=== PATIENT | male | born 1975 | race Caucasian/White ===

== ENCOUNTER 2016-10-09 01:06 | Emergency (ER) | payer MEDICARE, MEDICAID ==
[2016-10-09 01:12] VITALS: BP 149/103
--- NOTE | 2016-10-09 01:49 | ED ---
Becka Shaw Erika, scribed for Alphonso Verma MD on 10/09/16 at 0149 . 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 Pt denies any other complaints. - History of Current Complaint Chief Complaint: EDGeneral Stated Complaint: LEGAL BLOOD DRAW Time Seen by Provider: 10/09/16 01:44 PMH/Surg Hx/FS Hx/Imm Hx Cardiovascular History: Reports: Hx Coronary Artery Disease, Hx Valvular Heart Disease - Surgical History Surgery Procedure, Year, and Place: aortic vavle transplant 2011- metal valve. coronary disease Infectious Disease History: No Infectious Disease History: Denies: Traveled Outside the [place] in Last 30 Days - Family History Family History: stomach cancer - Social History Alcohol Use: None Hx Substance Use: No Substance Use Type: Reports: None Smoking Status (MU): Unknown if Ever Smoked Review of Systems Negative: Abdominal Pain Negative: Arthralgia, Myalgia All Other Systems Reviewed And Are Negative: Yes Physical Exam Triage Information Reviewed: Yes Vital Signs On Initial Exam: Initial Vitals Temp Pulse Resp BP Pulse Ox 98.7 F 75 16 149/103 98 10/09/16 01:08 10/09/16 01:08 10/09/16 01:08 10/09/16 01:08 10/09/16 01:08 Vital Signs Reviewed: Yes Appearance: Positive: No Pain Distress Skin: Positive: Warm Head/Face: Positive: Normal Head/Face Inspection ENT: Positive: Normal ENT inspection Respiratory/Lung Sounds: Positive: Breath Sounds Present Cardiovascular: Positive: Normal Abdomen Description: Positive: Nontender, Soft Bowel Sounds: Positive: Present Musculoskeletal: Positive: Strength/ROM Intact Neurological: Positive: Alert, Oriented to Person Place, Time Diagnostics - Vital Signs Vital Signs Temp Pulse Resp BP Pulse Ox 10/09/16 01:08 98.7 F 75 16 149/103 98 - Laboratory Lab Statement: Any lab studies that have been ordered have been reviewed, and results considered in the medical decision making process. Course/Dx - Course Course Of Treatment: Pt initially stated chest pain to the nurses, and declined an EKG. He denies any pain to physician. - Diagnoses Provider Diagnoses: Blood alcohol request Discharge - Discharge Plan Condition: Stable Disposition: HOME Referrals: Rosendo Milian MD [Primary Care Provider] - The documentation as recorded by the scribe, Glaubitz,Rhona accurately reflects the service I personally performed and the decisions made by me, Alphonso Verma MD.
== END 2016-10-09 02:16 | disposition home or self-care (01) ==
LOC: ED 01:06
DX: Z02.83 Encounter for blood-alcohol and blood-drug test (principal)
CPT/HCPCS: 99281